=== PATIENT | male | born 1980 | race Caucasian/White ===

== ENCOUNTER → 2016-08-13 | Outpatient (CLI) | payer OTHER ==
[~2016-08-13] MED LIST: AUGMENTIN 875-1 EACH PO; BUPRENORPHIN-N1 EACH SL; CLARITIN 10MG T10 MG PO; FAMOTIDINE40 MG PO; MIRALAX PACK 171 PKT PO; SYMBICORT 160-1 INHA INH; VENTOLIN HFA 66.7 GM INH
== END ==
LOC: HEART 5 08-11 14:30
DX: I71.4 Abdominal aortic aneurysm, without rupture (principal); Q23.1 Congenital insufficiency of aortic valve
CPT/HCPCS: 93306

== ENCOUNTER → 2016-09-28 | Outpatient (CLI) | payer OTHER | LOC: HEART 5 11:00 | DX: R00.2 Palpitations (principal) ==

== ENCOUNTER 2021-06-10 15:15 | Emergency (ER) | payer OTHER ==
[~2021-06-10 15:15] MED LIST changes: +COLACE 100MG C100 MG PO; +PROTONIX40 MG PO; +ZOFRAN4 MG PO
[2021-06-10 16:44] LABS: HEMOGLOBIN 13.7 gm/dl (14.0-17.5); RED BLOOD COUNT 4.89 M/UL (4.20-5.50); WHITE BLOOD COUNT 8.9 K/UL (4.5-11.0)
[2021-06-10 17:04] LABS: BUN/CREATININE RATIO 12 (0-10)
== END 2021-06-11 00:05 | disposition home or self-care (01) ==
LOC: ER1 15:15
PROVIDERS: Physician Assistant
DX: I48.0 Paroxysmal atrial fibrillation (principal); I10 Essential (primary) hypertension; F17.200 Nicotine dependence, unspecified, uncomplicated; Z20.822 Contact with and (suspected) exposure to COVID-19
CPT/HCPCS: 70450; 71045; 80053; 82550; 82553; 83874; 84484; 85025; 85379; 86140; 93005; 96374; 99285; J2060; J7030; Q9967; U0002

== ENCOUNTER → 2021-12-10 | Outpatient (CLI) | payer OTHER | LOC: HEART 5 07:30 | DX: I20.9 Angina pectoris, unspecified (principal) | CPT/HCPCS: 78452; A9502 ==